=== PATIENT | female | born 1945 | race Caucasian/White ===

== ENCOUNTER → 2017-08-28 | Outpatient (CLI) | payer MEDICARE, BC ==
[~2017-08-28] MED LIST: AMAN100; BAYER ADVANCED500 MG PO; CALCIUM COMPLETE; CARB100; CARBI50; CARBIDOPA LEVO; FAMO40 PO; IVERMECTIN3 MG PO; MIRT30ST MM; MULVITMIND PO; [UNRECOGNIZED DRUG - OTHER]
[2017-08-28 19:26] LABS: BASOPHILS ABSOLUTE AUTO 0.04 K/mm3 (0.00-0.23); BASOPHILS PERCENT AUTO 1 % (0-2); EOSINOPHILS ABSOLUTE AUTO 0.02 K/mm3 (0.00-0.68); EOSINOPHILS PERCENT AUTO 1 % (0-6); Hematocrit 37.1 % (33.0-51.0); Hemoglobin 12.3 g/dL (11.5-16.0); IMMATURE GRAN ABSOLUTE AUTO 0.01 K/mm3 (0.00-0.10); IMMATURE GRAN PERCENT AUTO 0 % (0-1); LYMPHOCYTES ABSOLUTE AUTO 0.91 K/mm3 (0.84-5.20); LYMPHOCYTES PERCENT AUTO 21 % (21-46); MONOCYTES ABSOLUTE AUTO 0.31 K/mm3 (0.16-1.47); MONOCYTES PERCENT AUTO 7 % (4-13); Mean Corpuscular HGB 31.6 pg (26.0-34.0); Mean Corpuscular HGB Conc 33.2 g/dL (31.5-36.5); Mean Corpuscular Volume 95 fL (80-100); Mean Platelet Volume 10.1 fL (9.1-12.4); NEUTROPHILS ABSOLUTE AUTO 3.05 K/mm3 (1.96-9.15); NEUTROPHILS PERCENT AUTO 70 % (41-73); Platelet Count 196 K/mm3 (150-400); RDW Coefficient Variation 12.3 % (11.7-14.2); RDW Standard Deviation 43.3 fL (35.1-46.3); Red Blood Cell Count 3.89 M/mm3 (3.80-5.20); White Blood Cell Count 4.34 K/mm3 (4.00-11.30)
[2017-08-28 19:53] LABS: Alanine Aminotransfer (ALT/SGP 8 U/L (12-78); Albumin, Blood 4.4 g/dL (3.4-5.0); Albumin/Globulin Ratio 1.3 (0.8-1.8); Alk Phos 85 U/L (50-136); Anion Gap 7 mmol/L (6-16); Aspartate Aminotrans (AST/SGOT 16 U/L (12-37); Bilirubin, Total 0.5 mg/dL (0.1-1.0); Blood Urea Nitrogen 24 mg/dL (8-24); Bun/Creatinine Ratio 34.9 (12.0-20.0); CO2, Blood 28 mmol/L (21-32); Calcium, Blood 9.3 mg/dL (8.5-10.1); Chloride, Blood 102 mmol/L (98-108); Creatinine, Blood 0.69 mg/dL (0.40-1.00); Globulin, Blood 3.4 g/dL (2.2-4.0); Glomerular Filtration Rate >60 (60-); Glucose, Blood 99 mg/dL (70-99); Potassium, Blood 4.2 mmol/L (3.5-5.5); Sodium, Blood 137 mmol/L (136-145); Total Protein, Blood 7.8 g/dL (6.4-8.2)
[2017-08-28 19:55] LABS: Percent Saturation 29.1 % (15.0-50.0)
== END | disposition home or self-care (01) ==
LOC: LAB SHORT 16:30 → LAB 16:30
PROVIDERS: Nurse Practitioner Family
DX: D64.9 Anemia, unspecified (principal); M81.0 Age-related osteoporosis without current pathological fracture; Z78.0 Asymptomatic menopausal state
CPT/HCPCS: 80053; 82306; 83540; 83550; 85025

== ENCOUNTER → 2021-12-31 | Outpatient (CLI) | payer MEDICARE, OTHER ==
[~2021-12-31] MED LIST changes: +HYDR1TAB94 PO; -MIRT30ST MM; +MIRT30ST PO; +TUMS500 MG PO
[2022-01-01 09:34] LABS: BASOPHILS ABSOLUTE AUTO 0.02 K/mm3 (0.00-0.23); BASOPHILS PERCENT AUTO 1 % (0-2); EOSINOPHILS ABSOLUTE AUTO 0.07 K/mm3 (0.00-0.68); EOSINOPHILS PERCENT AUTO 2 % (0-6); Hematocrit 33.8 % (33.0-51.0); Hemoglobin 11.3 g/dL (11.5-16.0); IMMATURE GRAN ABSOLUTE AUTO 0.01 K/mm3 (0.00-0.10); IMMATURE GRAN PERCENT AUTO 0 % (0-1); LYMPHOCYTES ABSOLUTE AUTO 0.71 K/mm3 (0.84-5.20); LYMPHOCYTES PERCENT AUTO 16 % (21-46); MONOCYTES ABSOLUTE AUTO 0.35 K/mm3 (0.16-1.47); MONOCYTES PERCENT AUTO 8 % (4-13); Mean Corpuscular HGB 31.4 pg (26.0-34.0); Mean Corpuscular HGB Conc 33.4 g/dL (31.5-36.5); Mean Corpuscular Volume 94 fL (80-100); Mean Platelet Volume 10.4 fL (9.1-12.4); NEUTROPHILS ABSOLUTE AUTO 3.27 K/mm3 (1.96-9.15); NEUTROPHILS PERCENT AUTO 74 % (41-73); Platelet Count 242 K/mm3 (150-400); RDW Coefficient Variation 12.2 % (11.7-14.2); RDW Standard Deviation 42.5 fL (35.1-46.3); White Blood Cell Count 4.43 K/mm3 (4.00-11.30)
[2022-01-01 10:08] LABS: Alanine Aminotransfer (ALT/SGP 9 U/L (12-78); Albumin, Blood 4.1 g/dL (3.4-5.0); Albumin/Globulin Ratio 1.3 (0.8-1.8); Alk Phos 64 U/L (50-136); Anion Gap 2 mmol/L (6-16); Aspartate Aminotrans (AST/SGOT 11 U/L (12-37); Bilirubin, Total 0.5 mg/dL (0.1-1.0); Blood Urea Nitrogen 25 mg/dL (8-24); Bun/Creatinine Ratio 34.4 (12.0-20.0); CHOL/HDL RATIO 2.3; CO2, Blood 29 mmol/L (21-32); Calcium, Blood 9.6 mg/dL (8.5-10.1); Chloride, Blood 107 mmol/L (98-108); Cholesterol 180 mg/dL (50-200); Creatinine, Blood 0.73 mg/dL (0.40-1.00); Globulin, Blood 3.2 g/dL (2.2-4.0); Glomerular Filtration Rate 86 (60-); Glucose, Blood 114 mg/dL (70-99); HDL Cholesterol 79 mg/dL (>39); LDL/HDL RATIO 1.1; Low Density Lipoprotein Chol 88 mg/dL (0-110); Potassium, Blood 4.3 mmol/L (3.5-5.5); Sodium, Blood 138 mmol/L (136-145); Total Protein, Blood 7.3 g/dL (6.4-8.2); Triglycerides 66 mg/dL (30-160); Very Low Density Lipoprot Chol 13 mg/dL (6-32)
== END ==
LOC: LAB SHORT 08:06
PROVIDERS: Nurse Practitioner
DX: Z13.6 Encounter for screening for cardiovascular disorders (principal); N39.0 Urinary tract infection, site not specified; R30.0 Dysuria; R42 Dizziness and giddiness
CPT/HCPCS: 80053; 80061; 85025

== ENCOUNTER 2022-05-05 16:58 | Inpatient (IN) | payer MEDICARE, OTHER ==
[~2022-05-05] VITALS: Ht 165.1 cm; Wt 59.0 kg
[~2022-05-05 16:58] MED LIST changes: -CARB100; +Hair, Skin & N1 EACH PO; +MIRT30 PO; -MIRT30ST PO; -MULVITMIND PO; +STALEVO PO
[2022-05-05 17:58] LABS: BASOPHILS ABSOLUTE AUTO 0.03 K/mm3 (0.00-0.23); BASOPHILS PERCENT AUTO 1 % (0-2); EOSINOPHILS ABSOLUTE AUTO 0.03 K/mm3 (0.00-0.68); EOSINOPHILS PERCENT AUTO 1 % (0-6); Hematocrit 35.4 % (33.0-51.0); Hemoglobin 11.9 g/dL (11.5-16.0); IMMATURE GRAN PERCENT AUTO 0 % (0-1); LYMPHOCYTES ABSOLUTE AUTO 1.01 K/mm3 (0.84-5.20); LYMPHOCYTES PERCENT AUTO 24 % (21-46); MONOCYTES ABSOLUTE AUTO 0.36 K/mm3 (0.16-1.47); MONOCYTES PERCENT AUTO 9 % (4-13); Mean Corpuscular HGB 31.1 pg (26.0-34.0); Mean Corpuscular HGB Conc 33.6 g/dL (31.5-36.5); Mean Corpuscular Volume 92 fL (80-100); NEUTROPHILS ABSOLUTE AUTO 2.76 K/mm3 (1.96-9.15); NEUTROPHILS PERCENT AUTO 66 % (41-73); Platelet Count 226 K/mm3 (150-400); RDW Coefficient Variation 12.2 % (11.7-14.2); RDW Standard Deviation 42.1 fL (35.1-46.3); Red Blood Cell Count 3.83 M/mm3 (3.80-5.20); White Blood Cell Count 4.19 K/mm3 (4.00-11.30)
[2022-05-05 18:17] LABS: Albumin, Blood 4.3 g/dL (3.4-5.0); Albumin/Globulin Ratio 1.2 (0.8-1.8); Bilirubin, Total 0.3 mg/dL (0.1-1.0); Bun/Creatinine Ratio 43.5 (12.0-20.0); Calcium, Blood 9.5 mg/dL (8.5-10.1); Creatinine, Blood 0.81 mg/dL (0.40-1.00); Globulin, Blood 3.6 g/dL (2.2-4.0); Total Protein, Blood 7.9 g/dL (6.4-8.2)
[2022-05-05 22:04] LABS: Magnesium, Blood 2.1 mg/dL (1.6-2.4)
[2022-05-05 22:11] LABS: Thyroid Stimulating Hormone 1.24 uIU/mL (0.360-4.800)
--- NOTE | 2022-05-05 22:51 | NUR ---
THE PATIENT IS A 77 YEAR-OLD FEMALE WITH A DIAGNOSIS OF AN ISCHEMIC STROKE. PATIENT TRANSFERRED FROM [facility] TO BED WITH A 1-PERSON ASSIST. NO FOCAL DEFICITS OBSERVED. PATIENT IS A&OX4 AND EFFECTIVELY COMMUICATES NEEDS. NOTED TO SPEAK IN SOFT TONE. NO SLURRED SPEECH OBSERVED. THERE IS A SLIGHT LEFT FACIAL DROOP. PATIENT IS CONTINENT OF BOWEL AND BLADDER. NO PAIN OR OTHER SYMPTOMS REPORTED TO THIS RN. NO ACUTE CONCERNS AT THIS TIME. VSS. RR EVEN AND UNLABORED ON RA. BED LOW AND LOCKED. CALL LIGHT WITHIN REACH. THIS RN WILL CONTINUE TO CLOSELY MONITOR.
--- NOTE | 2022-05-06 03:43 | NUR ---
FIRE ADJUSTER SUMMARY VSS. NO ACUTE EVENTS THIS SHIFT. NO NEUROLOGICAL CHANGES. PATIENT OBSERVED SLEEPING COMFORTABLY THROUGHOUT THE NIGHT. PATIENT'S IS AT BEDSIDE. BED LOW AND LOCKED. CALL LIGHT WITHIN REACH. THIS RN WILL CONTINUE TO MONITOR.
[2022-05-06 06:03] LABS: BASOPHILS ABSOLUTE AUTO 0.04 K/mm3 (0.00-0.23); BASOPHILS PERCENT AUTO 1 % (0-2); EOSINOPHILS ABSOLUTE AUTO 0.05 K/mm3 (0.00-0.68); EOSINOPHILS PERCENT AUTO 1 % (0-6); Hematocrit 32.3 % (33.0-51.0); Hemoglobin 11.3 g/dL (11.5-16.0); IMMATURE GRAN ABSOLUTE AUTO 0.01 K/mm3 (0.00-0.10); IMMATURE GRAN PERCENT AUTO 0 % (0-1); LYMPHOCYTES PERCENT AUTO 38 % (21-46); MONOCYTES ABSOLUTE AUTO 0.39 K/mm3 (0.16-1.47); MONOCYTES PERCENT AUTO 9 % (4-13); Mean Corpuscular HGB 31.7 pg (26.0-34.0); Mean Corpuscular Volume 91 fL (80-100); NEUTROPHILS ABSOLUTE AUTO 2.12 K/mm3 (1.96-9.15); NEUTROPHILS PERCENT AUTO 50 % (41-73); Platelet Count 200 K/mm3 (150-400); RDW Coefficient Variation 12.3 % (11.7-14.2); RDW Standard Deviation 41.2 fL (35.1-46.3); Red Blood Cell Count 3.57 M/mm3 (3.80-5.20); White Blood Cell Count 4.21 K/mm3 (4.00-11.30)
[2022-05-06 06:32] LABS: Albumin, Blood 3.8 g/dL (3.4-5.0); Albumin/Globulin Ratio 1.2 (0.8-1.8); Bilirubin, Total 0.4 mg/dL (0.1-1.0); Bun/Creatinine Ratio 34.7 (12.0-20.0); Calcium, Blood 9.4 mg/dL (8.5-10.1); Creatinine, Blood 0.81 mg/dL (0.40-1.00); Globulin, Blood 3.1 g/dL (2.2-4.0); Potassium, Blood 4.2 mmol/L (3.5-5.5); Total Protein, Blood 6.9 g/dL (6.4-8.2)
[2022-05-06] MEDS ORDERED: ATOR40TA PO (12:30)
[2022-05-06] MEDS ORDERED: CARBLEV25 PO (12:31)
[2022-05-06] MEDS ORDERED: CARBIDOPA-LEVO1 EA17 PO (12:32)
[2022-05-06] MEDS ORDERED: CARBIDOPA-LEVO1 EA15 PO ×2 (12:33→12:34)
[2022-05-06] MEDS ORDERED: OMEP20ER PO (12:34)
[2022-05-06] MEDS ORDERED: CLOP75 PO (12:34)
[2022-05-06] MEDS ORDERED: FERSU300 PO (12:34)
--- NOTE | 2022-05-06 13:28 | NUR ---
DR JIMENEZ ATTEMPTED TO REACH DR JIMENEZ OFFICE, LEFT MESSAGE FOR [facility] TO REQUEST A DISCHARGE/OFFICE NOTE TO CONFIRM MEDICATIONS. RECEIVED A FAX FOR [facility] WITH PT LAST 60 DAYS OF REFILLS. THE QUANTITY DOESN'T MATCH WHAT PT RELATES. CONTINUE POC.
[2022-05-06] MEDS ORDERED: LISI5 PO (14:24)
[2022-05-06] MEDS ORDERED: PANT40 PO (15:12)
--- NOTE | 2022-05-06 16:37 | NUR ---
DR JIMENEZ RECORDS RECEIVED FROM [facility]. LIST OF MEDICATIONS INCLUDED OF 04/17/2022.CONTINUE POC.
--- NOTE | 2022-05-06 16:46 | NUR ---
EVENING NOTE PT HAS GONE HOME TO [place]. THEY HAVE A DISABLED SON WITH DOWNS SYNDROME. PT IS CONTENT TO STAY THE NIGHT TONIGHT. ECHO HAS NOT RESULTED YET. RECORDS RECEIVED FROM PT NEUROLOGIST. SEE NOTE. PT HAS LEFT FACIAL DROOP, VOICE QUALITY WEAK, BREATHY AND QUIET. SHE HAS BEEN OKD BY SPEECH THERAPY TO EAT A REGULAR DIET. THE ONLY THING SHE WANTED WAS CRANBERRY JUICE. UP WALKING EASILY. SHE HAS SCOLIOSIS SO SHE WALKS STOOPED. SHE HAS HER 4 WHEELED WALKER AT BEDSIDE. DENIES PAIN. CONTINUE POC.
--- NOTE | 2022-05-06 18:16 | NUR ---
DINNER ARRIVED. AFTER YELLING AT THIS NURSE EARLIER FOR NOT FEEDING HER, SHE WAS NPO FOR SPEACH THERAPY, HE ATE HER ENTIRE DINNER. SHE ONLY DRANK THE COFFEE. WHEN ASKED HOW MUCH SHE HAD EATEN, SHE STATED ALL OF IT. HE WAS ACTIVELY EATING HER MEAL. THE ONLY ONE WITH TOMATO SAUCE STAINED TEETH WAS HER . THIS NURSE ASKED HER, IN FRONT OF , IF SHE WANTED SOME ICE CREAM? SHE BECAME VERY FIDGETY AND LOOKED AT HIM. HER FACE TURNED RED, SHE LOOKED AT HER TOES AND MUMBLED," NO THANK YOU I'M FINE." CONTINUE POC.
--- NOTE | 2022-05-07 04:39 | NUR ---
NUISANCE WILDLIFE CONTROL OPERATOR SUMMARY VSS. NO ACUTE EVENTS THROUGHOUT THE NIGHT. NO NEUROLOGICAL CHANGES OBSERVED BY THIS RN. BED LOW AND LOCKED. CALL LIGHT WITHIN REACH. THIS RN WILL CONTINUE TO CLOSELY MONITOR.
--- NOTE | 2022-05-07 14:13 | NUR ---
care meeting Dr Mondragon called to meet with pt and spouce. Continue poc.
--- NOTE | 2022-05-08 03:54 | NUR ---
INSULATION WORKER FURNACE INSTALLER SUMMARY NO ACUTE EVENTS THROUGHOUT THE NIGHT. VSS. RR EVEN AND UNLABORED ON RA. PATIENT OBSERVED TO BE SLEEPING COMFORTABLY THROUGHOUT THE NIGHT. BED LOW AND LOCKED. CALL LIGHT WITHIN REACH. THIS RN WILL CONTINUE TO MONITOR.
--- NOTE | 2022-05-08 08:00 | NUR ---
pt laying in bed wakes, easily, a/ox3, pleasant and cooperative with care, follows commanads well, denies any complaints of pain, lung sare cleawr t/o, resp even and unlabored, no cough noted, hrr, tele in place running sr per monitor, see strip, no edema noted, ppp+1, cap refill <3sec, vs stable, afebrile, iv site is clear and patent, btx4, abd flat soft nontender, voids without diff, skin c/w/d, maew, zack, call light in reach.
[2022-05-08] MEDS ORDERED: ASPI81CH PO (11:33)
[2022-05-08] MEDS ORDERED: MELATONIN5 M1 PO (11:36)
--- NOTE | 2022-05-08 12:00 | NUR ---
DISCHARGE MEDICATION ORDERS THIS RN TALKED WITH DR. POWERS ABOUT PT'S DISCHARGE MEDICATIONS. MANY MEDICATIONS DID NOT TRANSFER TO NEW REVISED MEDICATION LIST. THIS RN WENT OVER MEDICATIONS WITH DR. POWERS AND HE GAVE A VERABL ORDER FOR PT TO CONTINUE THEIR HOME DOSE FOR THEIR SENIMET/LEVODOPA MEDICATIONS AND GAVE A VERBAL TO CONTINUE THE MULTIVITAMIN, PROTONIX, REMERON, AMANTADINE, AND TUMS WERE ORDERED ON THE MEDICATION RECONCILATION 05/06/22.
[2022-05-08] MEDS ORDERED: SINEMET 25-1001 EAC1 PO (13:26)
--- NOTE | 2022-05-08 14:33 | NUR ---
pt has been discharged to home, Dr. Villalobos came by to speak to the , went over instructions, pharmacy also went over medications, iv removed intact, will have home health visits, left via wheelchair with operator/assistant foreman and spouce in attendence, with all belongings.
== END 2022-05-08 14:34 | disposition home health service (06) | DRG 66 ==
LOC: ER 16:58 → MEDS 16:59
PROVIDERS: Family Medicine; Physician Assistant; ADMIT Internal Medicine
DX: I63.9 Cerebral infarction, unspecified (principal); R29.810 Facial weakness; R47.1 Dysarthria and anarthria; G20 Parkinson's disease; I10 Essential (primary) hypertension; K21.9 Gastro-esophageal reflux disease without esophagitis; F32.A Depression, unspecified; R29.702 NIHSS score 2; R26.81 Unsteadiness on feet; R47.81 Slurred speech; H53.8 Other visual disturbances; Z96.651 Presence of right artificial knee joint; Z96.643 Presence of artificial hip joint, bilateral; Z90.49 Acquired absence of other specified parts of digestive tract; Z88.0 Allergy status to penicillin; Z79.891 Long term (current) use of opiate analgesic; Z79.899 Other long term (current) drug therapy; Z98.890 Other specified postprocedural states
CPT/HCPCS: 36415; 70450; 70496; 70498; 70551; 80053; 83735; 84443; 85025; 92610; 93005; 93010; 93306; 96372; 97112; 97129-GO-CO; 97130-GO-CO; 97161; 97165; 97530-CO; 99285-25; A9270; G0378; J1650; Q9967

== ENCOUNTER → 2022-05-15 | Outpatient (CLI) | payer MEDICARE, OTHER ==
[~2022-05-15] MED LIST changes: +ASPI81CH PO; +ATOR40TA PO; +CARBIDOPA-LEVO1 EA15 PO; +CARBIDOPA-LEVO1 EA17 PO; +CARBLEV25 PO; +CLOP75 PO; +FERSU300 PO; +LISI5 PO; +MELATONIN5 M1 PO; +OMEP20ER PO; +PANT40 PO; +SINEMET 25-1001 EAC1 PO
[2022-05-15 18:41] LABS: BASOPHILS ABSOLUTE AUTO 0.02 K/mm3 (0.00-0.23); BASOPHILS PERCENT AUTO 0 % (0-2); EOSINOPHILS ABSOLUTE AUTO 0.02 K/mm3 (0.00-0.68); EOSINOPHILS PERCENT AUTO 0 % (0-6); Hematocrit 31.6 % (33.0-51.0); Hemoglobin 10.6 g/dL (11.5-16.0); IMMATURE GRAN ABSOLUTE AUTO 0.01 K/mm3 (0.00-0.10); IMMATURE GRAN PERCENT AUTO 0 % (0-1); LYMPHOCYTES PERCENT AUTO 14 % (21-46); MONOCYTES ABSOLUTE AUTO 0.32 K/mm3 (0.16-1.47); MONOCYTES PERCENT AUTO 6 % (4-13); Mean Corpuscular HGB 31.3 pg (26.0-34.0); Mean Corpuscular HGB Conc 33.5 g/dL (31.5-36.5); Mean Corpuscular Volume 93 fL (80-100); Mean Platelet Volume 10.4 fL (9.1-12.4); NEUTROPHILS ABSOLUTE AUTO 4.11 K/mm3 (1.96-9.15); NEUTROPHILS PERCENT AUTO 79 % (41-73); Platelet Count 234 K/mm3 (150-400); RDW Coefficient Variation 12.6 % (11.7-14.2); Red Blood Cell Count 3.39 M/mm3 (3.80-5.20); White Blood Cell Count 5.18 K/mm3 (4.00-11.30)
[2022-05-15 20:07] LABS: Percent Saturation 20.3 % (15.0-50.0)
== END | disposition home or self-care (01) ==
LOC: LAB 12:00 → LAB SHORT 12:00
PROVIDERS: Nurse Practitioner Family
DX: E61.1 Iron deficiency (principal); D64.9 Anemia, unspecified
CPT/HCPCS: 82728; 83540; 83550; 85025

== ENCOUNTER → 2022-08-25 | Outpatient (CLI) | payer MEDICARE, OTHER ==
[2022-08-26 10:10] LABS: BASOPHILS ABSOLUTE AUTO 0.03 K/mm3 (0.00-0.23); BASOPHILS PERCENT AUTO 1 % (0-2); EOSINOPHILS ABSOLUTE AUTO 0.02 K/mm3 (0.00-0.68); EOSINOPHILS PERCENT AUTO 1 % (0-6); Hematocrit 31.2 % (33.0-51.0); Hemoglobin 10.7 g/dL (11.5-16.0); IMMATURE GRAN PERCENT AUTO 0 % (0-1); LYMPHOCYTES ABSOLUTE AUTO 0.75 K/mm3 (0.84-5.20); LYMPHOCYTES PERCENT AUTO 17 % (21-46); MONOCYTES ABSOLUTE AUTO 0.35 K/mm3 (0.16-1.47); MONOCYTES PERCENT AUTO 8 % (4-13); Mean Corpuscular HGB Conc 34.3 g/dL (31.5-36.5); Mean Corpuscular Volume 93 fL (80-100); Mean Platelet Volume 10.3 fL (9.1-12.4); NEUTROPHILS ABSOLUTE AUTO 3.15 K/mm3 (1.96-9.15); NEUTROPHILS PERCENT AUTO 73 % (41-73); Platelet Count 216 K/mm3 (150-400); RDW Coefficient Variation 12.3 % (11.7-14.2); RDW Standard Deviation 42.7 fL (35.1-46.3); Red Blood Cell Count 3.34 M/mm3 (3.80-5.20)
[2022-08-26 10:21] LABS: Albumin, Blood 3.9 g/dL (3.4-5.0); Albumin/Globulin Ratio 1.1 (0.8-1.8); Bilirubin, Total 0.4 mg/dL (0.1-1.0); Bun/Creatinine Ratio 26.9 (12.0-20.0); Calcium, Blood 8.8 mg/dL (8.5-10.1); Creatinine, Blood 0.86 mg/dL (0.40-1.00); Globulin, Blood 3.4 g/dL (2.2-4.0); Potassium, Blood 4.1 mmol/L (3.5-5.5); Total Protein, Blood 7.3 g/dL (6.4-8.2)
== END | disposition home or self-care (01) ==
LOC: LAB 15:10 → LAB SHORT 15:10
PROVIDERS: Nurse Practitioner Family
DX: I10 Essential (primary) hypertension (principal)
CPT/HCPCS: 80053; 85025

== ENCOUNTER → 2025-02-20 | Outpatient (CLI) | payer MEDICARE, OTHER ==
[2025-02-20 20:13] LABS: BASOPHILS ABSOLUTE AUTO 0.03 K/mm3 (0.00-0.23); BASOPHILS PERCENT AUTO 1 % (0-2); EOSINOPHILS ABSOLUTE AUTO 0.01 K/mm3 (0.00-0.68); EOSINOPHILS PERCENT AUTO 0 % (0-6); Hematocrit 29.9 % (33.0-51.0); Hemoglobin 9.8 g/dL (11.5-16.0); IMMATURE GRAN ABSOLUTE AUTO 0.01 K/mm3 (0.00-0.10); IMMATURE GRAN PERCENT AUTO 0 % (0-1); LYMPHOCYTES ABSOLUTE AUTO 0.67 K/mm3 (0.84-5.20); LYMPHOCYTES PERCENT AUTO 19 % (21-46); MONOCYTES ABSOLUTE AUTO 0.22 K/mm3 (0.16-1.47); MONOCYTES PERCENT AUTO 6 % (4-13); Mean Corpuscular HGB Conc 32.8 g/dL (31.5-36.5); Mean Corpuscular Volume 97 fL (80-100); NEUTROPHILS ABSOLUTE AUTO 2.65 K/mm3 (1.96-9.15); NEUTROPHILS PERCENT AUTO 74 % (41-73); NRBC ABSOLUTE 0.00 K/mm3 (0.00-0.02); NRBC Auto 0.0 /100 WBC (0.0-0.2); Platelet Count 250 K/mm3 (150-400); RDW Coefficient Variation 13.3 % (11.7-14.2); RDW Standard Deviation 47.4 fL (35.1-46.3)
== END ==
LOC: LAB 19:32 → LAB SHORT 19:32
PROVIDERS: Nurse Practitioner Family
DX: D64.9 Anemia, unspecified (principal); D72.810 Lymphocytopenia; Z79.899 Other long term (current) drug therapy
CPT/HCPCS: 82607; 82746; 85025; 85060